=== PATIENT | male | born 1970 | race Caucasian/White ===

== ENCOUNTER 2018-07-31 15:10 | Emergency (ER) | payer SELFPAY ==
[~2018-07-31] VITALS: Ht 175.3 cm; Wt 97.8 kg
[2018-07-31 15:17] VITALS: BP 147/101
[2018-07-31] MEDS ORDERED: LIDOCAINE-MPF 1%, 5ML ONE (15:44)
[2018-07-31] MEDS ORDERED: LIDOCAINE-MPF 1%, 5ML INFIL ONE (16:00)
== END 2018-07-31 16:38 | disposition home or self-care (01) ==
LOC: ED 16:05
DX: S63.283A Dislocation of proximal interphalangeal joint of left middle finger, initial encounter (principal); W11.XXXA Fall on and from ladder, initial encounter; Y93.89 Activity, other specified; Y92.009 Unspecified place in unspecified non-institutional (private) residence as the place of occurrence of the external cause; Y99.8 Other external cause status
CPT/HCPCS: 26742; 99284